=== PATIENT | male | born 1935 | race Caucasian/White ===

== ENCOUNTER 2019-08-23 17:24 | Outpatient (RCR) | payer MEDICARE, SELFPAY ==
[2019-06-09 15:17] LABS: INR 2.9; Prothrombin Time 30.1 Seconds (11.1-14.7)
[2019-07-07 15:42] LABS: INR 2.7; Prothrombin Time 28.1 Seconds (11.1-14.7)
[2019-08-09 15:51] LABS: INR 3.2; Prothrombin Time 32.5 Seconds (11.1-14.7)
[2019-08-23 17:52] LABS: INR 2.5; Prothrombin Time 26.7 Seconds (11.1-14.7)
== END 2019-09-07 23:59 | disposition home or self-care (01) ==
LOC: ANHLAB 17:24
PROVIDERS: PCP Internal Medicine Cardiovascular Disease; Visit Provider Internal Medicine Cardiovascular Disease
DX: Z51.81 Encounter for therapeutic drug level monitoring (principal); I48.91 Unspecified atrial fibrillation; Z79.01 Long term (current) use of anticoagulants
CPT/HCPCS: 36415; 85610

== ENCOUNTER 2020-02-06 01:54 | Outpatient (CLI) | payer MEDICARE, SELFPAY ==
[2020-02-06 19:09] LABS: SARS-CoV-2 RNA PCR Negative
== END 2020-02-06 01:55 | disposition home or self-care (01) ==
LOC: ANHCOVIDDT 01:55
PROVIDERS: PCP Internal Medicine Cardiovascular Disease; Visit Provider Internal Medicine Cardiovascular Disease
DX: Z01.812 Encounter for preprocedural laboratory examination (principal); Z11.59 Encounter for screening for other viral diseases
CPT/HCPCS: 87635; C9803; U0003

== ENCOUNTER 2020-02-08 05:30 | Day surgery (SDC) | payer MEDICARE, SELFPAY ==
[2020-02-08] VITALS (15 sets, daily range): BP systolic 106–148; BP diastolic 57–99; PULSE 55–79; RESP 12–22; TEMP 36.3–36.9; O2SAT 97–100; BMI 26.2
--- NOTE | ~2020-02-08 | XR_ITS ---
XR chest 2V DATE: 02/09/2020 07:49 INDICATION: 24 hours post pacemaker insertion TECHNIQUE: Portable AP chest on 02/09/2020 at 0747 hours COMPARISON: Portable AP chest on 02/08/2020 at 1243 hours FINDINGS: Left-sided pacemaker device with lead overlying right ventricle. Mild cardiomegaly. There i s aortic ectasia or aneurysm and tortuosity. No hilar or mediastinal enlargement. No pulmonary infiltrate or consolidation, pleural effusion or pu lmonary vascular congestion or pneumothorax. IMPRESSION: Mild cardiomegaly Thoracic aortic tortuosity and ectasia or aneurysm Left-sided single-lead pacemaker device Reviewed, dictated and finalized at location A.
--- NOTE | ~2020-02-08 | XR_ITS ---
XR chest 1V portable DATE: 02/08/2020 12:47 INDICATION: Pacemaker insertion TECHNIQUE: Portable AP chest on 02/08/2020 at 1243 hours COMPARISON: 08/07/2009 PA and lateral chest FINDINGS: Left-sided pacemaker device with lead overlying right ventricle. Heart size appears within normal range. There is aortic tortuosity and calcification. No pulmonary infiltrate or consolidation, pleural effusion or pulmonary vascular congestion or pneumo thorax. Diffuse osteopenia. IMPRESSION: No active pulmonary disease Left-sided pacemaker Aortic calcification and tortuosity Reviewed, dictated and finalized at location A.
--- NOTE | 2020-02-08 06:05 | ECG_ITS ---
Measurements Intervals [place] Rate: 69 P: NV: 0 QRS: -46 QRSD: 125 T: 90 QT: 439 QTc: 473 Interpretive Statements ATRIAL FIBRILLATION FREQUENT VENTRICULAR PREMATURE COMPLEXES LEFT AXIS DEVIATION INTRAVENTRICULAR CONDUCTION DELAY VOLTAGE CRITERIA FOR LVH BORDERLINE ST-T WAVE ABNORMALITY- HIGH LATERAL LEADS ABNORMAL ECG Electronically Signed On 02-08-2020 11:54:20 CDT by Bryon Bailey D.O.
[2020-02-08 09:31] LABS: Basophils Absolute Auto 0.1 K/mm3 (0.0-0.1); Basophils Percent Auto 1.3 % (0.2-1.2); Eosinophils Absolute Auto 0.1 K/mm3 (0-0.3); Eosinophils Percent Auto 3.2 % (0-4.4); Hemoglobin 13.4 g/dL (14.0-18.0); Immature Granulocyte Absolute 0.01 K/mm3 (0.00-0.031); Immature Granulocyte Percent A 0.3 % (0-0.5); Lymphocytes Absolute Auto 0.95 K/mm3 (0.9-3.2); Lymphocytes Percent Auto 25.3 % (18.3-44.2); Mean Corpuscular HGB Conc 34.4 g/dl (32-36); Mean Corpuscular Hemoglobin 33.2 pg (26-34); Mean Corpuscular Volume 96.5 fl (80-100); Mean Platelet Volume 10.4 fl (7.4-10.4); Monocytes Absolute Auto 0.6 K/mm3 (0.1-0.6); Monocytes Percent Auto 16.8 % (2.6-8.5); Neutrophils Percent Auto 53.1 % (45.5-73.1); Platelet Count Result 174 k/mm3 (150-375); Red Blood Count 4.04 M/mm3 (4.6-6.20); Red Cell Distribution Width 12.8 % (11.5-14.5); White Blood Count 3.8 K/mm3 (4.5-10.0)
[2020-02-08 09:33] LABS: INR 1.4; Prothrombin Time 17.1 Seconds (11.1-14.7)
[2020-02-08 09:35] LABS: Blood Urea Nitrogen 26 mg/dL (9-20); Carbon Dioxide 26 mmol/L (22-30); Chloride 107 mmol/L (98-107); Estimated Glomerular Filt Rate > 60; Glucose 91 mg/dL (75-110); Potassium 3.9 mmol/L (3.4-5.0); Sodium 139 mmol/L (137-145)
--- NOTE | 2020-02-08 09:36 | WPDHPUPDATE1 ---
History and Physical Update Update Date/Time: 02/08/20 09:36 Patient with persistent atrial fibrillation, moderate MR and AI, bradycardia and very frequent PVCs develop CHF recently. I think he has symptomatic bradycardia and recommended implantation of a permanent pacemaker. Last dose of warfarin was February 02. History and Physical has been reviewed, including an updated exam of the patient. There are NO changes in the patient's condition. Risks, benefits, and alternatives have been discussed and questions answered. Patient agrees to proceed with procedure. Reviewed risks of pacemaker implant with patient. These include breathing problems, allergic reactions, bleeding, infection, pneumothorax, cardiac puncture, need for unanticipated surgery, lead dislodgement among others.
--- NOTE | 2020-02-08 09:38 | WPDMODSED ---
Moderate Sedation Note-Pt Data Patient Data Diagnosis: Persistent atrial fibrillation with bradycardia, frequent PVCs, recent onset of CHF, moderate MR/AI, sleep apnea. Present Complaint: LEES, exertional fatigue, recent onset of CHF, persistent bradycardia, frequent PVCs 23% of cardiac cycles Reviewed risks of pacemaker implant with patient. These include breathing problems, allergic reactions, bleeding, infection, pneumothorax, cardiac puncture, need for unanticipated surgery, lead dislodgement among others. Procedure to be performed/Plan: Conscious sedation Venogram Implantation of a permanent single lead pacemaker Allergies Allergy/AdvReac Type Severity Reaction Status Date / Time erythromycin base Allergy Mild PT NOT Unverified 11/12/09 11:13 SURE--HAD PROBLEM 30 YEARS AGO Home Medications Medication Instructions Recorded Confirmed Type amlodipine 2.5 mg PO DAILY 02/07/20 02/07/20 History ascorbic acid (vitamin C) [Vitamin 500 mg PO DAILY 02/07/20 02/07/20 History C With Ashely Hips] furosemide [Lasix] 20 mg PO DAILY 02/07/20 02/07/20 History multivitamin 1 tablet PO DAILY 02/07/20 02/07/20 History fcgjc-1p-cfz-epa-fish oil [[place]-3 1 cap PO DAILY 02/07/20 02/07/20 History Fish Oil] vitamin D3-folic acid 1 tablet PO DAILY 02/07/20 02/07/20 History warfarin 6 mg PO DAILY 02/07/20 02/07/20 History Current Medications: Reviewed risks of pacemaker implant with patient. These include breathing problems, allergic reactions, bleeding, infection, pneumothorax, cardiac puncture, need for unanticipated surgery, lead dislodgement among others. Sedation/Anesthesia: No previous sedation/anesthesia problems (including family history). [facility] Past Medical History Medical History (Updated 02/08/20 @ 09:42 by Nel Bales MD) Aortic insufficiency Atrial fibrillation Diastolic CHF, chronic 2020 Mitral regurgitation LAI treated with BiPAP PVCs (premature ventricular contractions) Surgical History Surgical History (Updated 02/08/20 @ 09:43 by Nel Bales MD) H/O detached retina repair H/O hernia repair S/P lens implant Family History Family History (Updated 02/08/20 @ 09:43 by Nel Bales MD) Father Cerebrovascular accident Mother Polycystic kidney disease Mod Sed Physical Exam Physical Exam Pre Procedural Exam: Normal: Appearance, Eyes, Ears, Nose, Neck, Throat, Airway, Lungs, Heart Size, Heart Rate, Neuro Exam, Abdomen, Liver, Kidneys, Extremities and Skin (Skin in the left prepectoral area is intact) and Variation: Heart Rhythm (Irregular rhythm secondary to PVCs) Hours since solid foods: 12 Hours since liquid intake: 12 Internal Medicine - PN: Obj Da Labs CBC & Chem 7: 02/08/20 09:15 02/08/20 09:15 Labs: Laboratory Results - last 24 hr 02/08/20 02/08/20 02/08/20 09:15 09:15 09:15 WBC 3.8 L RBC 4.04 L Hgb 13.4 L Hct 39.0 L MCV 96.5 MCH 33.2 MCHC 34.4 RDW 12.8 Plt Count 174 MPV 10.4 Immature Gran % (Auto) 0.3 Neut % (Auto) 53.1 Lymph % (Auto) 25.3 [place] % (Auto) 16.8 H Eos % (Auto) 3.2 Baso % (Auto) 1.3 H Lymph # (Auto) 0.95 [place] # (Auto) 0.6 Eos # (Auto) 0.1 Baso # (Auto) 0.1 Abs Immat Gran (auto) 0.01 Absolute Neuts (auto) 2.0 Absolute Nucleated RBC 0.0 Nucleated RBC % 0.0 PT 17.1 H INR 1.4 Sodium 139 Potassium 3.9 Chloride 107 Carbon Dioxide 26 BUN 26 H Creatinine 1.00 Estim Creat Clear Calc Not Reportable Estimated GFR > 60 Glucose 91 Calcium 9.0 ASA Classification/Sedation ASA Classification/Sedation ASA Class: III Risks: Risks, benefits and alternatives explained and patient/family accepted plan for sedation. Reviewed risks of pacemaker implant with patient. These include breathing problems, allergic reactions, bleeding, infection, pneumothorax, cardiac puncture, need for unantic
--- NOTE | 2020-02-08 12:12 | ECG_ITS ---
Measurements Intervals [place] Rate: 66 P: NE: 0 QRS: -20 QRSD: 155 T: 117 QT: 460 QTc: 483 Interpretive Statements ELECTRONIC VENTRICULAR PACEMAKER VENTRICULAR PREMATURE COMPLEX BASELINE ARTIFACT- I, II, III, AVR, AVL, AVF, V1 NO FURTHER INTERPRETATION IS POSSIBLE ATYPICAL ECG Electronically Signed On 02-08-2020 13:06:29 CDT by Bryon Bailey D.O.
--- NOTE | 2020-02-08 12:15 | PM.OP ---
Procedure Note - Brief Procedure Note - Brief Date of procedure: 02/08/20 Pre-op diagnosis: Symptomatic Bradycardia Symptomatic bradycardia Post-op diagnosis: same Procedure performed: conscious sedation Venogram Insertion of a permanent single lead pacemaker Description of procedure: uneventful implantation of a [employer]ax single lead VVI pacemaker Lead placed on septum Implants: a[employer] Dax's VVI pacemaker Pulse generator model Assurity MRI 1272, Serial # [id number] V lead: [employer] 2088TC/52 cm, Serial # [id number] Anesthesia: local (w conscious sedation) Surgeon: Nel Bales MD Estimated blood loss (mL): 10 Drains: No Packing: No Pathology: none sent Complications: No immediate complications Condition: stable Disposition: observation
--- NOTE | 2020-02-08 12:18 | PM.PROC ---
Procedure Note - Detailed Date of procedure: 02/08/20 Pre-op diagnosis: Symptomatic Bradycardia Post-op diagnosis: same Procedure performed: Conscious sedation Venogram Implantation of a permanent single lead pacemaker Description of procedure: SITE: Left prepectoral area MEDICATIONS GIVEN IN HEATING EQUIPMENT INSTALLER: Ancef 1 gram IV piggyback CONSCIOUS SEDATION: Assessment: The patient has no history of anesthesia problems. The patient's oropharynx is clear. The patient was deemed to be a good candidate for conscious sedation. The patient had continuous hemodynamic monitoring during the procedure. Start time: 1105 Completion time: 1208 Total conscious sedation time: 63 minutes Medications: Versed 2 mg, fentanyl 100 mcg IV push Trained observer: Atiya Pacheco RN Outcome: The patient tolerated the procedure well with no complications. PROCEDURE: After informed consent , the patient was brought to the [facility] and the left prepectoral area was prepped and draped in usual fashion . The patient received preop antibiotic and conscious sedation . The left prepectoral area was anesthetized with lidocaine. A venogram was performed showing the course of the left subclavian vein which was patent. Next a skin incision was made and carried down to the prepectoral fascia. The pacer pocket was formed. Hemostasis was obtained using electrocautery . The left subclavian vein was accessed with the micropuncture technique, and a J-tip guide wire was passed into the superior vena cava under fluoroscopic guidance . The needle was withdrawn. A 6 [place] safety sheath was passed over the wire, the wire withdrawn, and the right ventricular lead was passed into the inferior vena cava under fluoroscopic guidance . The lead was then prolapsed through the tricuspid valve and advanced into the right ventricule And the lead was implanted on the septum. When suitable sensing and pacing thresholds were obtained, it was screwed into place. No extra cardiac stimulation was obtained using 10 volts. The sheath was withdrawn. The lead was securedto the prepectoral fascia using 2-0 silk over it's sleeve. The pocket was cleansed with antibiotic containing solution . The pulse generator was introduced into the operative field, and the lead was secured into the generator . A gentle tug showed the lead was securely fastened. The device was introduced into the pocket. The subcutaneous tissues were closed in a double layer fashion with interrupted sutures, using 2-0 Vicryl suture , and the skin was closed in a continuous fashion using 4-0 Vicryl suture in a continuous fashion. The area was cleansed, and an Aquacel dressing was applied . The patient tolerated the procedure well with no complications. PACEMAKER INFORMATION: Pulse generator: [employer] D[employer]'s medical model Assurity MRI 1272, Serial # [id number] Right ventricular lead: V lead: [employer] 2088TC/52 cm, Serial # [id number] MEASURED DATA: Right ventricular lead: R-wave sensing 9.6 mV, impedance 630 Ohms, threshold 0.75 volts at 0.4 millisecond PROGRAMMING; VVIR 60 Implants: Pulse generator: [employer] Dax's medical model Assurity MRI 1272, Serial # [id number] Right ventricular lead: V lead: [employer] 2088TC/52 cm, Serial # [id number] Anesthesia: local ( with conscious sedation) Surgeon: Nel Bales MD Estimated blood loss (mL): 10 Drains: No Packing: No Pathology: none sent Complications: No immediate complications Condition: stable Disposition: observation
--- NOTE | 2020-02-08 12:32 | ECG_ITS ---
Measurements Intervals [place] Rate: 66 P: DC: 0 QRS: -20 QRSD: 155 T: 117 QT: 460 QTc: 483 Interpretive Statements ELECTRONIC VENTRICULAR PACEMAKER VENTRICULAR PREMATURE COMPLEX AND FUSION COMPLEX BASELINE ARTIFACT- I, III, AVR, AVL,A VF, V1-V2 NO FURTHER INTERPRETATION IS POSSIBLE ATYPICAL ECG Electronically Signed On 02-08-2020 16:13:01 CDT by Bryon Bailey D.O.
[2020-02-08] MEDS: traMADol HCL 50 MG TABLET PO (19:51)
[2020-02-09] VITALS (13 sets, daily range): BP systolic 142–160; BP diastolic 71–102; PULSE 67–90; RESP 14–18; TEMP 36.6; O2SAT 98–99
--- NOTE | 2020-02-09 | ECHOL_ITS ---
Patient Info Name: Simón Negron Age: 84 years : 1935 Gender: Male Ht: 66 in Wt: 162 lbs BSA: 1.86 m2 HR: 80 bpm Heart Rhythm: Paced Technical Quality: Good Exam Date: 02/09/2020 11:08 AM Exam Location: [facility] Patient Status: Outpatient Admit Date: 02/08/2020 Staff Ordering Physician: Pippa Foss APRN [employer] Resources Hr Generalist: Logan Meeks RDCS Attending Provider: Nel Bales MD Referring Physician: Pipo MARIEE; Exam Type: CA echo limited Study Info Limited two-dimensional transthoracic echocardiogram is performed. History/Risk Factors Recent pacemaker placement; symptomatic bradycardia. Summary 1. Left ventricular systolic function is normal, estimated at 55-60%. 2. Right ventricular chamber dimension is normal. 3. Linear artifact in right ventricle suggestive of catheter(s), pacemaker lead(s), or ICD lead(s). 4. Pacemaker lead is positioned in the septal position. 5. There is no pericardial effusion. 6. There is mild aortic valve sclerosis. Left Ventricle Left ventricular chamber dimension is normal. Left ventricular systolic function is normal, estimated at 55-60%. Right Ventricle Right ventricular chamber dimension is normal. Linear artifact in right ventricle suggestive of catheter(s), pacemaker lead(s), or ICD lead(s). Pacemaker lead is positioned in the septal position. Left Atria Left atrial chamber dimension is mildly enlarged. Right Atria Right atrial chamber dimension is normal. Aortic Valve The aortic valve is trileaflet. There is mild aortic valve sclerosis. There is mild aortic valve regurgitation. Pulmonic Valve The pulmonic valve is not well visualized. Mitral Valve The mitral valve has normal leaflets. There is mild mitral valve regurgitation. Tricuspid Valve The tricuspid valve leaflets are normal. There is trace tricuspid valve regurgitation. Pericardium/Pleural The pericardium appears normal. There is no pericardial effusion. Aorta The aortic root size at the sinus of Valsalva is normal. Left Ventricular Outflow Tract Name Value Normal LVOT Doppler LVOT Peak Gradient 3 mmHg LVOT Mean Gradient 2 mmHg LVOT VTI 15 cm LVOT VTI/AV VTI Ratio 0.7 Tricuspid Valve Name Value Normal TV Regurgitation Doppler TR Peak Velocity 266 cm/s TR Peak Gradient 28 mmHg Estimated PAP/RSVP RA Pressure 5 mmHg <=5 PA Systolic Pressure 33 mmHg <36 RV Systolic Pressure 33 mmHg <36 Aortic Valve Name Value Normal
[2020-02-09] MEDS: traMADol HCL 50 MG TABLET 100 MG PO (02:25)
[2020-02-09 08:28] LABS: Glucose Point of Care 121 (65-105)
[2020-02-09] MEDS: METOPROLOL SUCCINATE EXT REL 25 MG TABCR PO (10:00)
[2020-02-09] MEDS: FUROSEMIDE 20 MG TABLET PO (13:13)
[2020-02-09] MEDS: MECLIZINE HCL 12.5 MG TABLET PO (13:32)
--- NOTE | 2020-02-09 15:09 | PM.DS ---
DS: Admitting Diagnosis Admitting Diagnosis Admitting Diagnosis: Symptomatic bradycardia DS: Discharge Diagnosis Discharge Diagnosis (1) Symptomatic bradycardia: Code(s): R00.1 - Bradycardia, unspecified Status: Acute Assessment and Plan: Persistent atrial fibrillation with symptomatic bradycardia. Single-chamber Dominguez (St Dax) pacemaker placed by Dr Bales on 02/08/2020 . (2) Atrial fibrillation: Code(s): I48.91 - Unspecified atrial fibrillation Status: Acute Assessment and Plan: He is to resume his warfarin on 02/11/2020 (3) PVCs (premature ventricular contractions): Code(s): I49.3 - Ventricular premature depolarization Status: Acute Assessment and Plan: Metoprolol succinate added to his regimen to try to suppress some of the PVCs . DS: Summary Hospital Course Reason for hospitalization: Symptomatic bradycardia Hospital Course: 84-year-old male with persistent atrial fibrillation, moderate MR and AI, bradycardia with very frequent PVCs with the development of recent heart failure. Permanent pacemaker was recommended due to his symptomatic bradycardia. Dominguez (St Dax) single-chamber pacemaker placed by Dr Bales on 02/08/2020. Chest x-ray following the implant revealed no pneumothorax. He was monitored overnight. He continued to have frequent PVCs. Pacemaker rate was increased to 80 beats per minute. There was a decrease in the frequency of the PVCs however he still continued to have some bigeminy as well as trigeminy. He was asymptomatic during those times. Chest x-ray PA and lateral on the day of discharge revealed no pneumothorax. The pacemaker interrogation revealed normally functioning device. He was started on Metoprolol succinate 25 mg to attempt to suppress some of the PVCs. As his blood pressure would tolerate higher dose he was discharged on 50 mg daily. He complained of significant lightheadedness as well of feeling flushed with some nausea. He was given some Zofran with some relief. Reasons for dizziness were explored including orthostatic blood pressures, limited echo which was normal And pacemaker performance which was also normal.. Meclizine 12.5 mg was given for the complaints of dizziness. This certainly did help his lightheadedness. He felt he was stable enough to go home and get a good 8 hours sleep in his own bed. He was discharged home in stable condition. Status at Discharge Functional status at discharge: independent ambulation Overall status at discharge: patient is progressing back to baseline Time Spent with Patient Time attestation: Total time spent providing and/or coordinating discharge services: 45 minutes. 20 minutes in the room with discharge instructions including restrictions for activity, resuming medications and exploring reasons for his dizziness. 15 minutes to do discharge orders and 10 minutes to do discharge summary. Time spent: Greater than 30 minutes Exam Narrative: Exam Narrative: In chair. Complaining of some lightheadedness. Denied chest discomfort or shortness of breath. Const: General: cooperative Nutritional Appearance: well nourished Orientation/consciousness: patient oriented x3 HENMT: Head: normal to inspection, normocephalic and atraumatic Ears: hearing grossly normal bilaterally General nose exam: Normal external nose present Eyes: General: appearance normal, both eyes and all related structures Neck: Neck: normal visual inspection and full ROM Chest: Chest palpation & inspection: normal inspection of the chest and Pacemaker present Other: Aquacel dressing intact. No drainage. No swelling or bleeding. Small amount of ecchymosis at the base of the dressing. Resp: Effort & Inspection: normal respiratory effort and able to speak in complete senten
--- NOTE | 2020-02-09 16:45 | PC.NURSE ---
1530-pt given D/C orders and instructions. Questions answered and verbalized understanding. AOx4. Incision site covered with Aquacel Ag, no evidence of bleeding or hematoma noted. Taken via wheelchair to waiting vehicle. No distress noted or verbalized at time of departure.
== END 2020-02-09 15:30 | disposition home or self-care (01) ==
LOC: ANHCATHLAB 08:37 → ANHIMU 02-09 00:21 → ANHCPC 03-12 09:14
PROVIDERS: PCP Internal Medicine; Visit Provider Internal Medicine Cardiovascular Disease
PROC: 0JH604Z Insertion of Pacemaker, Single Chamber into Chest Subcutaneous Tissue and Fascia, Open Approach (ICD-10-PCS; CPT 33210; principal; 2020-02-08 10:00)
DX: I49.3 Ventricular premature depolarization (principal); I48.19 Other persistent atrial fibrillation; I50.32 Chronic diastolic (congestive) heart failure; I34.0 Nonrheumatic mitral (valve) insufficiency; I35.1 Nonrheumatic aortic (valve) insufficiency; G47.33 Obstructive sleep apnea (adult) (pediatric); Z79.01 Long term (current) use of anticoagulants
CPT/HCPCS: 33207; 36415; 71045; 71046; 80048; 85025; 85610; 93005; 93308; A9270; C1786; C1898; J0690; J1644; J2250; J2405; J3010; J7030; J7040

== ENCOUNTER 2020-02-28 11:03 | Outpatient (RCR) | payer MEDICARE, SELFPAY ==
[2019-12-07 15:33] LABS: INR 2.7; Prothrombin Time 28.3 Seconds (11.1-14.7)
[2020-01-16 11:48] LABS: Basophils Absolute Auto 0.1 K/mm3 (0.0-0.1); Basophils Percent Auto 1.3 % (0.2-1.2); Eosinophils Absolute Auto 0.1 K/mm3 (0-0.3); Eosinophils Percent Auto 2.5 % (0-4.4); Hematocrit 40.3 % (42.0-52.0); Hemoglobin 13.8 g/dL (14.0-18.0); Immature Granulocyte Absolute 0.01 K/mm3 (0.00-0.031); Immature Granulocyte Percent A 0.3 % (0-0.5); Lymphocytes Absolute Auto 0.87 K/mm3 (0.9-3.2); Lymphocytes Percent Auto 21.8 % (18.3-44.2); Mean Corpuscular HGB Conc 34.2 g/dl (32-36); Mean Corpuscular Hemoglobin 33.3 pg (26-34); Mean Corpuscular Volume 97.3 fl (80-100); Mean Platelet Volume 11.4 fl (7.4-10.4); Monocytes Absolute Auto 0.7 K/mm3 (0.1-0.6); Monocytes Percent Auto 16.8 % (2.6-8.5); Neutrophils Absolute Auto 2.3 K/mm3 (1.3-6.7); Neutrophils Percent Auto 57.3 % (45.5-73.1); Platelet Count Result 172 k/mm3 (150-375); Red Blood Count 4.14 M/mm3 (4.6-6.20); Red Cell Distribution Width 13.4 % (11.5-14.5)
[2020-01-16 11:49] LABS: Blood Urea Nitrogen 19 mg/dL (9-20); Calcium 9.3 mg/dL (8.4-10.2); Carbon Dioxide 28 mmol/L (22-30); Chloride 105 mmol/L (98-107); Estimated Glomerular Filt Rate > 60; Glucose 103 mg/dL (75-110); Potassium 4.3 mmol/L (3.4-5.0); Sodium 137 mmol/L (137-145)
[2020-01-16 11:57] LABS: NT Pro B Type Natriuretic Pept 978 PG/ML (5-100)
[2020-01-16 12:32] LABS: INR 3.2; Prothrombin Time 32.2 Seconds (11.1-14.7)
[2020-02-28 11:31] LABS: Prothrombin Time 21.8 Seconds (11.1-14.7)
== END 2020-03-06 23:59 | disposition home or self-care (01) ==
LOC: ANHLAB 11:03
PROVIDERS: PCP Internal Medicine Cardiovascular Disease; Visit Provider Internal Medicine Cardiovascular Disease
DX: I48.92 Unspecified atrial flutter (principal); I48.19 Other persistent atrial fibrillation; R00.1 Bradycardia, unspecified; R06.00 Dyspnea, unspecified; R53.83 Other fatigue; Z79.01 Long term (current) use of anticoagulants; Z79.899 Other long term (current) drug therapy
CPT/HCPCS: 36415; 80048; 83735; 83880; 85025; 85610

== ENCOUNTER 2020-04-29 01:22 | Outpatient (CLI) | payer MEDICARE, SELFPAY ==
[2020-04-29 18:11] LABS: SARS-CoV-2 RNA PCR Negative
== END 2020-04-29 01:23 | disposition home or self-care (01) ==
LOC: ANHCOVIDDT 01:24
PROVIDERS: PCP Internal Medicine; Visit Provider Internal Medicine Cardiovascular Disease
DX: Z01.812 Encounter for preprocedural laboratory examination (principal); Z20.828 Contact with and (suspected) exposure to other viral communicable diseases
CPT/HCPCS: 87635; C9803; U0003

== ENCOUNTER 2020-05-01 03:09 | Day surgery (SDC) | payer MEDICARE, SELFPAY ==
[2020-04-30 13:03] VITALS: BMI 26.2
[2020-05-01] VITALS (10 sets, daily range): BP systolic 125–138; BP diastolic 83–101; PULSE 80; RESP 10–22; TEMP 36.4–36.5; O2SAT 96–100; BMI 26.0
--- NOTE | 2020-05-01 10:33 | WPDHPUPDATE1 ---
History and Physical Update Update Date/Time: 05/01/20 10:33 Patient with significant LEES and exertional intolerance here to evaluate the degree of his mitral regurgitation By ELIZABET.History and Physical has been reviewed, including an updated exam of the patient. There are NO changes in the patient's condition. Risks, benefits, and alternatives have been discussed and questions answered. Patient agrees to proceed with procedure.
--- NOTE | 2020-05-01 10:34 | WPDMODSED ---
Moderate Sedation Note-Pt Data Patient Data Diagnosis: LEES exertional intolerance. Echo showed EF 59%, mitral valve prolapse with moderate MR and moderate AI in July 2019. Murmur sounds quite prominent. Also has a history of persistent atrial fibrillation, anticoagulation, pacemaker, and frequent PVCs abolished with flecainide. History of sleep apnea using BiPAP. Present Complaint: LEES, exertional intolerance, mitral regurgitation Procedure to be performed/Plan: conscious sedation transesophageal echo Allergies Allergy/AdvReac Type Severity Reaction Status Date / Time erythromycin base Allergy Mild PT NOT Verified 05/01/20 09:27 SURE--HAD PROBLEM 30 YEARS AGO Home Medications Medication Instructions Recorded Confirmed Type [place]-3 Fish Oil 1 cap PO DAILY 02/07/20 04/30/20 History ascorbic acid (vitamin C) [Vitamin 500 mg PO DAILY 02/07/20 04/30/20 History C With Ashely Hips] furosemide [Lasix] 20 mg PO DAILY 02/07/20 04/30/20 History multivitamin 1 tablet PO DAILY 02/07/20 04/30/20 History vitamin D3-folic acid 1 tablet PO DAILY 02/07/20 04/30/20 History warfarin 6 mg PO DAILY 02/07/20 04/30/20 History metoprolol succinate 50 mg PO DAILY #30 tablet 02/09/20 04/30/20 Rx Current Medications: Active Medications Sodium Chloride (Normal Saline Iv) 1,000 mls @ 30 mls/hr IV CONT .Q24H TO Sedation/Anesthesia: No previous sedation/anesthesia problems (including family history). [facility] Past Medical History Medical History (Updated 05/01/20 @ 10:36 by Nel Bales MD) Aortic insufficiency Atrial fibrillation Diastolic CHF, chronic 2019 Mitral regurgitation LAI treated with BiPAP Pacemaker Saint Dax's pacemaker, January 2020 PVCs (premature ventricular contractions) Surgical History Surgical History H/O detached retina repair H/O hernia repair S/P lens implant Family History Family History Father Cerebrovascular accident Mother Polycystic kidney disease Social History Social History Smoking status: Never smoker Alcohol intake: never Substance use: never Substance use type: does not use Gender identity (if verbalized by the patient): Male Spiritual care concerns: No Mod Sed Physical Exam Physical Exam Pre Procedural Exam: Normal: Appearance, Eyes, Ears, Nose, Neck, Throat, Airway, Lungs, Heart Size ( 3/6 blowing systolic murmur at the apex), Heart Rate, Heart Rhythm, Neuro Exam, Abdomen, Liver, Kidneys, Extremities and Skin and Variation: Heart Size ( 3/6 blowing systolic murmur at the apex) Hours since solid foods: 12 Hours since liquid intake: 12 Internal Medicine - PN: Obj Da Vital Signs Vital Signs: Vital Signs - 24 hr 05/01/20 09:15 Temperature 97.5 F L Pulse Rate 80 Respiratory Rate 13 Blood Pressure 138/100 H Pulse Oximetry 100 Meds/Results Medications: Active Medications Generic Name Dose Route Start Last Admin Trade Name Freq PRN Reason Stop Dose Admin Sodium Chloride 1,000 mls @ 30 mls/hr 05/01/20 06:00 Normal Saline Iv IV CONT .Q24H [facility] ASA Classification/Sedation ASA Classification/Sedation ASA Class: III Risks: Risks, benefits and alternatives explained and patient/family accepted plan for sedation. risks of sedation ELIZABET were reviewed including breathing problems, blood pressure problems, Esophageal problems etc.. No history of any esophageal stricture or swallowing troubles. Patient desires to proceed.. Patient re-evaluated immediately prior to sedation.
--- NOTE | 2020-05-01 11:01 | PM.OP ---
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
--- NOTE | 2020-05-01 11:05 | PM.PROC ---
Procedure Note - Detailed Date of procedure: 05/01/20 Pre-op diagnosis: Dyspenia on Exertion, Mitral/Tricuspid Valve Regur Post-op diagnosis: same Procedure performed: Conscious sedation Transesophageal echo Description of procedure: Conscious sedation: Assessment: The patient has no history of anesthesia problems. The patient's oropharynx is clear. The patient was deemed to be a good candidate for conscious sedation. The patient had continuous hemodynamic and oximetric monitoring during the procedure. Start time: 1041 Completion time: 1059 Total conscious sedation time: 18 minutes Medications Used: Versed 1 mg, fentanyl 75 mcg IV push Trained observer: Haja Vega RN Outcome: The patient tolerated the procedure well with no complications. Procedure: After informed consent the patient had Hurricaine spray the hypopharynx. The patient had conscious sedation as described above. The transesophageal echo probe was introduced in the esophagus without difficulty. Imaging was obtained in multiplane views. Agitated saline was injected to evaluate for intracardiac shunting. The patient tolerated the procedure well with no complications. Findings: The left atrium was was very dilated. There is no thrombus present in the left atrium or left atrial appendage. The atrial septum appeared intact. Mitral valve showed significant prolapse of the A2 cusp of the anterior leaflet. There was a mobile mass associated with the A2 leaflets which appears to be a ruptured leaflet tip and torn cordae, vegetation much less likely. The left ventricle was enlarged, with moderate to severe global hypokinesis and akinesis of the mid and distal inferoseptal segment. The ejection fraction is estimated to be: 25%. The aortic root and valve were normal. The ascending aorta, aortic arch and descending thoracic aorta had intimal wall thickening but no significant atherosclerosis. The right atrium, tricuspid valve, right ventricle, pulmonic valve and pulmonic artery were all normal. There is no pericardial effusion. When agitated saline was injected intravenously there was no evidence of intracardiac shunting. Colorflow Doppler Findings: There was at least moderate highly eccentric anteriorly directed mitral regurgitation present. Mild aortic insufficiency and trace to mild tricuspid regurgitation were seen. Doppler of the left pulmonary vein was normal. Doppler of the right pulmonary vein showed mild blunting of systolic flow but no flow reversal. Anesthesia: local ( With conscious sedation) Surgeon: Nel Bales MD Estimated blood loss (mL): 0 Drains: No Packing: No Pathology: none sent Complications: No immediate complications Condition: stable Disposition: observation Findings: Significant anterior mitral valve prolapse Ruptured A2 leaflet tip with torn chordae of the mitral valve, vegetation much less likely. At least moderate highly eccentric anteriorly directed mitral regurgitation. Mild aortic insufficiency Trace to mild tricuspid regurgitation Severe left ventricular dysfunction, EF 25% Recommendation: DC flecainide since it is contraindicated with this degree of left ventricular function Evaluate for SBE: blood cultures, CBC, sed rate, CRP Treat systolic dysfunction; add lisinopril 5 mg qd. Ischemia evaluation Consider referral to [facility] for Casandra-Clip procedure
[2020-05-01 12:09] LABS: Basophils Percent Auto 0.8 % (0.2-1.2); Eosinophils Absolute Auto 0.7 K/mm3 (0-0.3); Eosinophils Percent Auto 14.6 % (0-4.4); Hematocrit 39.3 % (42.0-52.0); Hemoglobin 13.7 g/dL (14.0-18.0); Immature Granulocyte Absolute 0.01 K/mm3 (0.00-0.031); Immature Granulocyte Percent A 0.2 % (0-0.5); Mean Corpuscular HGB Conc 34.9 g/dl (32-36); Mean Corpuscular Hemoglobin 33.3 pg (26-34); Mean Corpuscular Volume 95.4 fl (80-100); Mean Platelet Volume 10.5 fl (7.4-10.4); Monocytes Absolute Auto 0.6 K/mm3 (0.1-0.6); Monocytes Percent Auto 13.2 % (2.6-8.5); Neutrophils Absolute Auto 2.3 K/mm3 (1.3-6.7); Neutrophils Percent Auto 48.2 % (45.5-73.1); Platelet Count Result 166 k/mm3 (150-375); Red Blood Count 4.12 M/mm3 (4.6-6.20); Red Cell Distribution Width 13.2 % (11.5-14.5); White Blood Count 4.8 K/mm3 (4.5-10.0)
[2020-05-01 12:20] LABS: Alanine Aminotransferase 28 U/L (4-50); Albumin Level 3.7 g/dL (3.5-5.1); Alkaline Phosphatase 81 U/L (38-126); Anion Gap 7 mmol/L (8-16); Aspartate Amino Transferase 44 U/L (17-59); Bilirubin,Total 0.8 mg/dL (0.2-1.3); Blood Urea Nitrogen 15 mg/dL (9-20); Calcium 8.7 mg/dL (8.4-10.2); Carbon Dioxide 27 mmol/L (22-30); Chloride 109 mmol/L (98-107); Estimated CRCL calculation 48 ml/min; Estimated Glomerular Filt Rate > 60; Glucose 89 mg/dL (75-110); Potassium 4.5 mmol/L (3.4-5.0); Sodium 143 mmol/L (137-145)
[2020-05-01 12:23] LABS: CRP 0.9 mg/dL (<1.0)
[2020-05-01 12:38] LABS: Erythrocyte Sedimentation Rate 13 mm/hr (0-20)
--- NOTE | 2020-05-01 13:33 | SUR.PHASEII ---
1240-pt given D/C orders and instructions. Questions answered and verbalized understanding. AOx4. Taken via wheelchair to waiting vehicle. No distress noted or verbalized at time of departure.
== END 2020-05-01 12:40 | disposition home or self-care (01) ==
PROVIDERS: PCP Internal Medicine; Visit Provider Internal Medicine Cardiovascular Disease
PROC: (CPT 93312; principal; 2020-05-01 10:00)
DX: I34.0 Nonrheumatic mitral (valve) insufficiency (principal); I34.8 Other nonrheumatic mitral valve disorders; I36.1 Nonrheumatic tricuspid (valve) insufficiency; I35.1 Nonrheumatic aortic (valve) insufficiency; I34.1 Nonrheumatic mitral (valve) prolapse; R06.09 Other forms of dyspnea; I48.19 Other persistent atrial fibrillation; I49.3 Ventricular premature depolarization; G47.33 Obstructive sleep apnea (adult) (pediatric); I50.32 Chronic diastolic (congestive) heart failure; Z79.01 Long term (current) use of anticoagulants; Z95.0 Presence of cardiac pacemaker
CPT/HCPCS: 36415; 80053; 85025; 85610; 85652; 86140; 87040; 93312; 93320; 93325; A9270; J2250; J3010; J7040

== ENCOUNTER 2020-05-22 01:19 | Outpatient (CLI) | payer MEDICARE, SELFPAY ==
[2020-05-22 18:17] LABS: SARS-CoV-2 RNA PCR Negative
== END 2020-05-22 01:20 | disposition home or self-care (01) ==
LOC: ANHCOVIDDT 01:20
PROVIDERS: PCP Internal Medicine; Visit Provider Specialist
DX: Z01.812 Encounter for preprocedural laboratory examination (principal); Z20.828 Contact with and (suspected) exposure to other viral communicable diseases
CPT/HCPCS: 87635; C9803; U0003

== ENCOUNTER 2020-05-24 00:38 | Day surgery (SDC) | payer MEDICARE, SELFPAY ==
[2020-05-23 15:38] VITALS: BMI 26.1
[2020-05-24] VITALS (16 sets, daily range): BP systolic 115–155; BP diastolic 71–98; PULSE 59–76; RESP 11–23; TEMP 36.4; O2SAT 98–100
[2020-05-24 07:33] LABS: Basophils Absolute Auto 0.1 K/mm3 (0.0-0.1); Eosinophils Absolute Auto 0.3 K/mm3 (0-0.3); Eosinophils Percent Auto 4.8 % (0-4.4); Hematocrit 38.7 % (42.0-52.0); Hemoglobin 13.5 g/dL (14.0-18.0); Immature Granulocyte Absolute 0.02 K/mm3 (0.00-0.031); Immature Granulocyte Percent A 0.4 % (0-0.5); Lymphocytes Absolute Auto 1.24 K/mm3 (0.9-3.2); Lymphocytes Percent Auto 23.9 % (18.3-44.2); Mean Corpuscular HGB Conc 34.9 g/dl (32-36); Mean Corpuscular Hemoglobin 33.2 pg (26-34); Mean Corpuscular Volume 95.1 fl (80-100); Mean Platelet Volume 10.5 fl (7.4-10.4); Monocytes Absolute Auto 0.7 K/mm3 (0.1-0.6); Monocytes Percent Auto 13.7 % (2.6-8.5); Neutrophils Absolute Auto 2.9 K/mm3 (1.3-6.7); Neutrophils Percent Auto 56.2 % (45.5-73.1); Platelet Count Result 189 k/mm3 (150-375); Red Blood Count 4.07 M/mm3 (4.6-6.20); Red Cell Distribution Width 13.5 % (11.5-14.5); White Blood Count 5.2 K/mm3 (4.5-10.0)
[2020-05-24 07:41] LABS: INR 1.4; Prothrombin Time 16.5 Seconds (11.1-14.7)
[2020-05-24 07:46] LABS: Anion Gap 8 mmol/L (8-16); Blood Urea Nitrogen 22 mg/dL (9-20); Calcium 8.8 mg/dL (8.4-10.2); Carbon Dioxide 25 mmol/L (22-30); Chloride 108 mmol/L (98-107); Estimated CRCL calculation 40 ml/min; Estimated Glomerular Filt Rate > 60; Glucose 94 mg/dL (75-110); Potassium 4.2 mmol/L (3.4-5.0); Sodium 141 mmol/L (137-145)
--- NOTE | 2020-05-24 09:42 | WPDMODSED ---
Moderate Sedation Note-Pt Data Patient Data Diagnosis: Mitral and aortic valve regurgitation persistent atrial fibrillation recent ventricular pacemaker implant exertional dyspnea Present Complaint: exertional shortness of breath /fatigue Procedure to be performed/Plan: right and left heart catheterization Allergies Allergy/AdvReac Type Severity Reaction Status Date / Time erythromycin base Allergy Mild PT NOT Verified 05/23/20 15:31 SURE--HAD PROBLEM 30 YEARS AGO Home Medications Medication Instructions Recorded Confirmed Type [place]-3 Fish Oil 1 cap PO DAILY 02/07/20 05/23/20 History ascorbic acid (vitamin C) [Vitamin 500 mg PO DAILY 02/07/20 05/23/20 History C With Ashely Hips] furosemide [Lasix] 20 mg PO DAILY 02/07/20 05/23/20 History multivitamin 1 tablet PO DAILY 02/07/20 05/23/20 History vitamin D3-folic acid 1 tablet PO DAILY 02/07/20 05/23/20 History warfarin 3 mg PO DAILY 02/07/20 05/23/20 History amiodarone 200 mg PO BID 05/23/20 05/23/20 History metoprolol succinate 25 mg PO DAILY 05/23/20 05/23/20 History Current Medications: Active Medications Sodium Chloride (Normal Saline Iv) 500 mls @ 100 mls/hr IV CONT .Q5H TO Sedation/Anesthesia: No previous sedation/anesthesia problems (including family history). [facility] Past Medical History Medical History (Updated 05/08/20 @ 09:14 by Vinicius Sapp MD) Aortic insufficiency Atrial fibrillation Diastolic CHF, chronic 2019 Mitral regurgitation LAI treated with BiPAP Pacemaker [employer] pacemaker, January 2020 PVCs (premature ventricular contractions) Surgical History Surgical History H/O detached retina repair H/O hernia repair S/P lens implant Family History Family History Father Cerebrovascular accident Mother Polycystic kidney disease Social History Social History Smoking status: Never smoker Alcohol intake: never Substance use: never Substance use type: does not use Gender identity (if verbalized by the patient): Male Spiritual care concerns: No Mod Sed Physical Exam Physical Exam Pre Procedural Exam: Normal: Appearance, Neck, Throat, Airway, Lungs, Neuro Exam, Abdomen and Extremities and Variation: Heart Size ( PMI enlarged not significantly displaced), Heart Rate ( irregularly irregular) and Heart Rhythm Hours since solid foods: 12 Hours since liquid intake: 12 Internal Medicine - PN: Obj Da Vital Signs Vital Signs: Vital Signs - 24 hr 05/24/20 07:27 Temperature 36.4 C Pulse Rate 76 Respiratory Rate 23 H Blood Pressure 155/81 H Pulse Oximetry 100 Meds/Results Medications: Active Medications Generic Name Dose Route Start Last Admin Trade Name Freq PRN Reason Stop Dose Admin Sodium Chloride 500 mls @ 100 mls/hr 05/24/20 05:55 Normal Saline Iv IV CONT .Q5H TO Labs CBC & Chem 7: 05/24/20 07:27 05/24/20 07:27 Labs: Laboratory Results - last 24 hr 05/24/20 05/24/20 05/24/20 07:27 07:27 07:27 WBC 5.2 RBC 4.07 L Hgb 13.5 L Hct 38.7 L MCV 95.1 MCH 33.2 MCHC 34.9 RDW 13.5 Plt Count 189 MPV 10.5 H Immature Gran % (Auto) 0.4 Neut % (Auto) 56.2 Lymph % (Auto) 23.9 Teller % (Auto) 13.7 H Eos % (Auto) 4.8 H Baso % (Auto) 1.0 Lymph # (Auto) 1.24 Teller # (Auto) 0.7 H Eos # (Auto) 0.3 Baso # (Auto) 0.1 Abs Immat Gran (auto) 0.02 Absolute Neuts (auto) 2.9 Absolute Nucleated RBC 0.0 Nucleated RBC % 0.0 PT 16.5 H INR 1.4 Sodium 141 Potassium 4.2 Chloride 108 H Carbon Dioxide 25 Anion Gap 8 BUN 22 H Creatinine 1.10 Estim Creat Clear Calc 40 Estimated GFR > 60 Glucose 94 Calcium 8.8 ASA Classification/Sedation ASA Classification
--- NOTE | 2020-05-24 10:42 | WPDCARDPROC ---
Cardiac Cath Procedure Note Date of procedure:: 05/24/20 Performing physician:: Scott Berumen MD Indication:: valvular heart disease chronic atrial fibrillation patient being considered for mitral valve intervention Brief clinical history:: this is an 84-year-old patient with a history of chronic persistent atrial fibrillation and left ventricular systolic dysfunction. The patient has aortic and mitral valve regurgitation. Right left heart catheterization was recommended as part of a evaluation for him to be considered a candidate for mitral valve intervention. Procedure Procedure performed:: Right left heart catheterization Sedation/Medication given:: fentanyl 50 mg Versed 2 mg sedation provided by Sudha Mann RN, trained observer Access site:: right femoral artery right femoral vein Estimated blood loss:: 20-30 cc Procedure note:: patient was brought to the cardiac catheterization lab in the postabsorptive state. The right femoral triangle was prepped and draped in the usual fashion. Anesthesia was provided with 1% lidocaine infiltrated locally. Using the modified Seldinger technique a 5 Armenian sheath was placed into the femoral artery and a 7 Armenian sheath into the femoral vein. I then used a balloon tipped [place]-Larry catheter to perform right-sided hemodynamics and thermodilution cardiac outputs. An AV O2 difference was then sample. The [place]-Larry catheter was removed. There was a concerning amount of bruising about the site of the arterial puncture sheath during the right heart catheterization I therefore elected to upsized this to a long 22 cm 6 Armenian sheath over a long guidewire. The 6 Armenian sheath resulted in good hemostasis. Following this I used a 5 Armenian angled pigtail catheter to perform left ventriculography and assess left-sided hemodynamics and pullback pressures across the aortic valve. Following this standard 5 Armenian FL4 JR4 catheters were used to engage inject the left and right coronaries in multiple projections. The case was then terminated he was taken to the holding area for manual sheath removal there were no signs of any procedural complications he tolerated the procedure well. Findings:: Hemodynamics: Right atrial pressure 7. Right ventricle 45 over 3 end-diastolic 8. Pulmonary artery pressure 45/16. Pulmonary capillary wedge pressure 17 V-wave up to 28. Central aortic pressure is 156/86 left ventricle 156/8 end-diastolic 18. There is no pullback gradient across the aortic valve. The thermodilution cardiac output measured 2.87 liters/minute giving an index of 1.56. Hussein cardiac output is 4.51 giving index of 2.46. Left ventricle: The LV is moderately dilated there is global systolic hypocontractility identified the ejection fraction is visually estimated to be 35-40%. There is 3 to 4+ mitral regurgitation angiographically. The left main coronary artery is nicely patent the left anterior descending is a moderate caliber vessel extending down to the apex the LAD and its branches are smooth and angiographically normal. The circumflex is a moderate caliber artery giving rise to the marginal branches the circumflex system and its branches are smooth and angiographically normal. The right coronary artery is large in caliber dominant to the posterior circulation the right coronary artery is also smooth and angiographically normal in appearance Conclusion:: 1. right coronary dominant circulation with no evidence of coronary artery disease 2. left ventricular enlargement with global hypocontractility ejection fraction as detailed above in the vicinity of 35-40% 3. angiographically evidence of moderate to severe MR
--- NOTE | 2020-05-24 19:08 | SUR.PHASEII ---
1900-pt given D/C orders and instructions. Questions answered and verbalized understanding. AOx4. PIV removed intact. Groin soft and non-tender, no evidence of bleeding or hematoma noted. Weak to moderate right pedal pulse noted. Taken via wheelchair to waiting vehicle. No distress noted or verbalized at time of departure.
== END 2020-05-24 19:00 | disposition home or self-care (01) ==
PROVIDERS: PCP Internal Medicine; Visit Provider Specialist
PROC: 4A023N8 Measurement of Cardiac Sampling and Pressure, Bilateral, Percutaneous Approach (ICD-10-PCS; CPT 93453; principal; 2020-05-24 08:30)
DX: Z01.810 Encounter for preprocedural cardiovascular examination (principal); I34.0 Nonrheumatic mitral (valve) insufficiency; I35.1 Nonrheumatic aortic (valve) insufficiency; I48.20 Chronic atrial fibrillation, unspecified; R06.09 Other forms of dyspnea; I50.32 Chronic diastolic (congestive) heart failure; G47.33 Obstructive sleep apnea (adult) (pediatric); Z95.0 Presence of cardiac pacemaker; Z79.01 Long term (current) use of anticoagulants
CPT/HCPCS: 36415; 80048; 85025; 85610; 93460; C1887; C1894; J1644; J2250; J3010; J7030; J7040

== ENCOUNTER 2020-07-01 12:55 | Outpatient (RCR) | payer MEDICARE, SELFPAY ==
[2020-04-16 12:18] LABS: INR 4.4; Prothrombin Time 41.4 Seconds (11.1-14.7)
[2020-05-01 09:10] LABS: Prothrombin Time 47.5 Seconds (11.1-14.7)
[2020-05-01 09:20] LABS: INR 5.2
[2020-05-03 11:10] LABS: Prothrombin Time 30.4 Seconds (11.1-14.7)
[2020-05-10 10:23] LABS: INR 2.3; Prothrombin Time 24.4 Seconds (11.1-14.7)
[2020-05-17 11:02] LABS: INR 1.8; Prothrombin Time 20.1 Seconds (11.1-14.7)
[2020-06-24 13:07] LABS: INR 4.1; Prothrombin Time 40.4 Seconds (11.1-14.7)
[2020-07-01 13:41] LABS: INR 3.8; Prothrombin Time 38.2 Seconds (11.1-14.7)
== END 2020-07-15 23:59 | disposition home or self-care (01) ==
LOC: ANHLAB 12:55
PROVIDERS: PCP Internal Medicine; Visit Provider Internal Medicine Cardiovascular Disease
DX: Z51.81 Encounter for therapeutic drug level monitoring (principal); I48.92 Unspecified atrial flutter; Z79.01 Long term (current) use of anticoagulants
CPT/HCPCS: 36415; 85610

== ENCOUNTER 2020-07-10 09:58 | Outpatient (NON) | payer MEDICARE, SELFPAY ==
[2020-07-10 22:32] LABS: SARS-CoV-2 RNA PCR Negative
== END 2020-07-10 09:59 ==
LOC: ANHCOVIDDT 10:05
PROVIDERS: Visit Provider Internal Medicine Cardiovascular Disease
DX: Z01.812 Encounter for preprocedural laboratory examination (principal); Z11.59 Encounter for screening for other viral diseases
CPT/HCPCS: 87635; C9803; U0003

== ENCOUNTER 2020-07-13 06:46 | Outpatient (NON) | payer MEDICARE, SELFPAY ==
[2020-07-14 01:24] LABS: SARS-CoV-2 RNA PCR Negative
== END 2020-07-13 06:47 ==
LOC: ANHCOVIDDT 06:46
PROVIDERS: Visit Provider Internal Medicine Cardiovascular Disease
DX: Z01.818 Encounter for other preprocedural examination (principal); Z20.828 Contact with and (suspected) exposure to other viral communicable diseases
CPT/HCPCS: 87635; C9803; U0003

== ENCOUNTER 2020-08-07 10:52 | Outpatient (RCR) | payer MEDICARE, SELFPAY ==
[2020-07-23 15:36] LABS: INR 2.3
[2020-08-07 11:58] LABS: INR 1.6; Prothrombin Time 19.8 Seconds (11.1-14.7)
== END 2020-10-21 23:59 | disposition home or self-care (01) ==
LOC: ANHLAB 10:52
PROVIDERS: PCP Internal Medicine; Visit Provider Internal Medicine Cardiovascular Disease
DX: Z51.81 Encounter for therapeutic drug level monitoring (principal); I48.19 Other persistent atrial fibrillation; Z79.01 Long term (current) use of anticoagulants
CPT/HCPCS: 36415; 85610

== ENCOUNTER 2020-10-23 10:30 | Outpatient (RCR) | payer MEDICARE, SELFPAY ==
[2020-08-01 14:53] VITALS: BP 138/84; PULSE 60; RESP 16; TEMP 36.5; O2SAT 99
--- NOTE | 2020-08-21 13:47 | PCCPR ---
pt cxl due to weather
--- NOTE | 2020-09-11 08:14 | PCCPR ---
absent-weather/too cold.
== END 2020-10-23 16:00 | disposition home or self-care (01) ==
LOC: ANHCPREHAB 10:30
PROVIDERS: PCP Internal Medicine; Visit Provider Internal Medicine Cardiovascular Disease
DX: Z95.2 Presence of prosthetic heart valve (principal)
CPT/HCPCS: 93798

== ENCOUNTER 2021-03-04 12:04 | Outpatient (CLI) | payer MEDICARE, SELFPAY ==
[2021-03-04 12:49] LABS: Hematocrit 38.1 % (42.0-52.0); Hemoglobin 12.9 g/dL (14.0-18.0); Mean Corpuscular HGB Conc 33.9 g/dl (32-36); Mean Corpuscular Hemoglobin 33.5 pg (26-34); Mean Platelet Volume 10.5 fl (7.4-10.4); Platelet Count Result 179 k/mm3 (150-375); Red Blood Count 3.85 M/mm3 (4.6-6.20); Red Cell Distribution Width 13.7 % (11.5-14.5); White Blood Count 4.9 K/mm3 (4.5-10.0)
[2021-03-04 17:07] LABS: Alanine Aminotransferase 29 U/L (4-50); Alkaline Phosphatase 97 U/L (38-126); Anion Gap 5 mmol/L (8-16); Aspartate Amino Transferase 50 U/L (17-59); Bilirubin,Total 0.6 mg/dL (0.2-1.3); Blood Urea Nitrogen 22 mg/dL (9-20); Calcium 9.3 mg/dL (8.4-10.2); Carbon Dioxide 27 mmol/L (22-30); Chloride 110 mmol/L (98-107); Estimated Glomerular Filt Rate 48; Glucose 78 mg/dL (65-110); Potassium 4.4 mmol/L (3.4-5.0); Sodium 142 mmol/L (137-145)
== END 2021-03-04 12:05 | disposition home or self-care (01) ==
PROVIDERS: PCP Internal Medicine; Visit Provider Internal Medicine Cardiovascular Disease
DX: Z51.81 Encounter for therapeutic drug level monitoring (principal); Z79.899 Other long term (current) drug therapy; Z79.01 Long term (current) use of anticoagulants
CPT/HCPCS: 36415; 80053; 84443; 85027

== ENCOUNTER 2021-09-08 14:54 | Outpatient (CLI) | payer MEDICARE, SELFPAY ==
[2021-09-08 15:35] LABS: Hematocrit 39.1 % (42.0-52.0); Hemoglobin 13.4 g/dL (14.0-18.0); Mean Corpuscular HGB Conc 34.3 g/dl (32-36); Mean Corpuscular Volume 99.2 fl (80-100); Mean Platelet Volume 10.3 fl (7.4-10.4); Platelet Count Result 203 k/mm3 (150-375); Red Blood Count 3.94 M/mm3 (4.6-6.20); Red Cell Distribution Width 13.5 % (11.5-14.5); White Blood Count 6.2 K/mm3 (4.5-10.0)
[2021-09-08 15:45] LABS: Alanine Aminotransferase 21 U/L (4-50); Alkaline Phosphatase 88 U/L (38-126); Anion Gap 4 mmol/L (8-16); Aspartate Amino Transferase 37 U/L (17-59); Bilirubin,Total 0.6 mg/dL (0.2-1.3); Blood Urea Nitrogen 22 mg/dL (9-20); Calcium 8.4 mg/dL (8.4-10.2); Carbon Dioxide 31 mmol/L (22-30); Chloride 104 mmol/L (98-107); Estimated Glomerular Filt Rate 57; Glucose 74 mg/dL (65-110); Sodium 139 mmol/L (137-145)
== END 2021-09-08 14:55 | disposition home or self-care (01) ==
LOC: ANHLAB 14:59
PROVIDERS: PCP Internal Medicine; Visit Provider Internal Medicine Cardiovascular Disease
DX: R06.00 Dyspnea, unspecified (principal); Z79.01 Long term (current) use of anticoagulants; Z79.899 Other long term (current) drug therapy
CPT/HCPCS: 36415; 80053; 84443; 85027

== ENCOUNTER 2022-02-11 16:38 | Emergency (ER) | payer MEDICARE, SELFPAY ==
--- NOTE | ~2022-02-11 | XR_ITS ---
EXAMINATION: XR chest 2V DATE: 02/11/2022 17:13 INDICATION: Cough. TECHNIQUE: Frontal and lateral views of the chest were obtained. COMPARISON: Chest 2 views 02/09/2020 FINDINGS: A calcified right lung nodule and calcified right hilar lymph nodes are consistent with old granulomatous disease. No pleural effusion or pneumothorax. The heart size is normal. There is a lef t chest pacer with lead in right ventricle. An implant overlies the heart. IMPRESSION: 1. No acute cardiopulmonary disease. Reviewed, dictated and finalized at location A.
[2022-02-11 16:39] VITALS: BP 140/80; PULSE 70; RESP 16; TEMP 36.8; O2SAT 100
--- NOTE | 2022-02-11 16:42 | ED.RECABL ---
HPI - Recheck/Abnormal Lab/Rx General Chief Complaint: Recheck/Abnormal Lab/Rx Stated Complaint: ELEVATED INR Time Seen by Provider: 02/11/22 16:42 History of Present Illness HPI narrative: Patient is an 86-year-old male with a history of coronary artery disease, anticoagulated on warfarin, pacemaker, arthritis presenting to the emergency department for evaluation of elevated INR. Patient was called by his battery starter today for INR greater than 8 on outpatient laboratory testing. He was told to come to emergency department for assessment. At the time of assessment, patient denies any current pain. He denies any bleeding gums, epistaxis, easy bruising, or blood present in his stool. He denies any specific pain. Patient denies any anticoagulation dose changes. He does report that he recently was placed on steroids for an upper respiratory infection that he has been symptomatic from since January 27. Patient has had negative COVID testing for the symptoms. He reports chronic wheezing and mildly productive cough without hemoptysis. Patient denies any chest pain or shortness of breath. Patient denies any medication additions. Related Data Home Medications Medication Instructions Recorded Confirmed ascorbic acid (vitamin C) 500 mg 500 mg PO DAILY 02/07/20 05/23/20 tablet (Vitamin C With Ashely Hips) furosemide 20 mg tablet (Lasix) 20 mg PO DAILY 02/07/20 05/23/20 multivitamin 1 tablet PO DAILY 02/07/20 05/23/20 omega-3s 300 [id number]-other 1 cap PO DAILY 02/07/20 05/23/20 [id number] oil 1,000 mg capsule (Vader-3 Fish Oil) vitamin D3 2,500 unit-folic acid 1 1 tablet PO DAILY 02/07/20 05/23/20 mg tablet warfarin 6 mg tablet 3 mg PO DAILY 02/07/20 05/23/20 amiodarone 200 mg tablet 200 mg PO BID 05/23/20 05/23/20 metoprolol succinate 50 mg 25 mg PO DAILY 05/23/20 05/23/20 tablet,extended release 24 hr quinapril 20 mg tablet 20 mg PO BID 08/14/20 08/14/20 Allergies Allergy/AdvReac Type Severity Reaction Status Date / Time erythromycin base Allergy Mild PT NOT Verified 05/23/20 15:31 SURE--HAD PROBLEM 30 YEARS AGO Review of Systems Review of Systems: CONSTITUTIONAL: Denies fever, chills, or sweats. EYES: Denies visual changes, redness, or discharge. ENT: Denies rhinorrhea, congestion, sore throat, or otalgia. CARDIOVASCULAR: Denies chest pain, palpitations, or edema. RESPIRATORY: Patient reports cough, wheezing GASTROINTESTINAL: Denies abdominal pain, nausea, vomiting, or diarrhea. GENITOURINARY: Denies dysuria or hematuria. SKIN: Denies rash or itching. MUSCULOSKELETAL: Denies back pain, joint pain, or myalgia. NEUROLOGIC: Denies headache, numbness, or weakness. [facility] Past Medical History Medical History Aortic insufficiency Atrial fibrillation Diastolic CHF, 2019 Mitral regurgitation LAI treated with BiPAP Pacemaker [employer] pacemaker, January 2020 PVCs (premature ventricular contractions) Surgical History Surgical History H/O detached retina repair H/O hernia repair S/P lens implant Family History Family History Father Cerebrovascular accident Mother Polycystic kidney disease Social History Social History Smoking status: Never smoker Alcohol intake: never Substance use: never Substance use type: does not use Gender identity (if verbalized by the patient): Male Sexual Orientation (if Verbalized by the Patient): Straight or Heterosexual Spiritual care concerns: No Exam Narrative: GENERAL: Awake, alert, conversant HEAD: Normocephalic, atraumatic. EYES: PERRLA and EOMI. ENT: Nares clear, no rhinorrhea or epistaxis. Mucous membranes moist. NECK: Supple. CHEST: No respiratory distress, breathing even and non labored.
--- NOTE | 2022-02-11 16:53 | PC.NURSE ---
patient reports recently being prescribed steroid for cold . last dose was today. checked INR today at home and it indicated >8.0. no recent dosage changes. patient denies any abnormal bleeding. last BM was this morning and denies any blood in stools or urine
[2022-02-11 16:57] LABS: Basophils Percent Auto 0.1 % (0.2-1.2); Hematocrit 41.7 % (42.0-52.0); Hemoglobin 13.6 g/dL (14.0-18.0); Immature Granulocyte Percent A 2.2 % (0-0.5); Lymphocytes Absolute Auto 0.52 K/mm3 (0.9-3.2); Lymphocytes Percent Auto 3.9 % (18.3-44.2); Mean Corpuscular HGB Conc 32.6 g/dl (32-36); Mean Corpuscular Hemoglobin 32.8 pg (26-34); Mean Corpuscular Volume 100.5 fl (80-100); Mean Platelet Volume 9.5 fl (7.4-10.4); Monocytes Absolute Auto 0.4 K/mm3 (0.1-0.6); Monocytes Percent Auto 3.1 % (2.6-8.5); Neutrophils Absolute Auto 12.1 K/mm3 (1.3-6.7); Neutrophils Percent Auto 90.7 % (45.5-73.1); Platelet Count Result 353 k/mm3 (150-375); Red Blood Count 4.15 M/mm3 (4.6-6.20); Red Cell Distribution Width 14.1 % (11.5-14.5); White Blood Count 13.4 K/mm3 (4.5-10.0)
[2022-02-11 17:06] LABS: Alanine Aminotransferase 39 U/L (6-50); Albumin Level 4.2 g/dL (3.5-5.1); Alkaline Phosphatase 99 U/L (38-126); Anion Gap 6 mmol/L (8-16); Aspartate Amino Transferase 39 U/L (17-59); Bilirubin,Total 0.8 mg/dL (0.2-1.3); Blood Urea Nitrogen 24 mg/dL (9-20); Calcium 8.8 mg/dL (8.4-10.2); Carbon Dioxide 30 mmol/L (22-30); Chloride 101 mmol/L (98-107); Estimated CRCL calculation 40 ml/min; Estimated Glomerular Filt Rate > 60; Glucose 127 mg/dL (65-110); Potassium 4.7 mmol/L (3.4-5.0); Sodium 137 mmol/L (137-145)
[2022-02-11 17:25] LABS: Partial Thromboplastin Time 56.6 SECONDS (22.3-36.8); Prothrombin Time 54.4 Seconds (11.1-14.7)
[2022-02-11 17:29] LABS: INR 6.4
[2022-02-11] MEDS: PHYTONADIONE 2.5 MG TAB PO (18:27)
== END 2022-02-11 18:30 | disposition home or self-care (01) ==
PROVIDERS: Emergency Provider Emergency Medicine; PCP Internal Medicine
DX: I48.91 Unspecified atrial fibrillation (principal); T45.515A Adverse effect of anticoagulants, initial encounter; Z79.01 Long term (current) use of anticoagulants; G47.30 Sleep apnea, unspecified; Z95.0 Presence of cardiac pacemaker; I50.9 Heart failure, unspecified
CPT/HCPCS: 36415; 71046; 80053; 85025; 85610; 85730; 99283; A9270

== ENCOUNTER 2022-03-17 12:34 | Outpatient (CLI) | payer MEDICARE, SELFPAY ==
[2022-03-17 13:10] LABS: Hematocrit 38.7 % (42.0-52.0); Hemoglobin 12.5 g/dL (14.0-18.0); Mean Corpuscular HGB Conc 32.3 g/dl (32-36); Mean Corpuscular Hemoglobin 32.5 pg (26-34); Mean Corpuscular Volume 100.5 fl (80-100); Mean Platelet Volume 10.4 fl (7.4-10.4); Platelet Count Result 207 k/mm3 (150-375); Red Blood Count 3.85 M/mm3 (4.6-6.20); Red Cell Distribution Width 14.1 % (11.5-14.5); White Blood Count 6.5 K/mm3 (4.5-10.0)
[2022-03-17 13:22] LABS: Alanine Aminotransferase 19 U/L (6-50); Albumin Level 3.8 g/dL (3.5-5.1); Alkaline Phosphatase 91 U/L (38-126); Anion Gap 6 mmol/L (8-16); Aspartate Amino Transferase 39 U/L (17-59); Bilirubin,Total 0.7 mg/dL (0.2-1.3); Blood Urea Nitrogen 23 mg/dL (9-20); Calcium 8.5 mg/dL (8.4-10.2); Carbon Dioxide 30 mmol/L (22-30); Chloride 104 mmol/L (98-107); Estimated Glomerular Filt Rate 57; Glucose 82 mg/dL (65-110); Potassium 4.4 mmol/L (3.4-5.0); Sodium 140 mmol/L (137-145)
== END 2022-03-17 12:35 | disposition home or self-care (01) ==
PROVIDERS: PCP Internal Medicine; Visit Provider Internal Medicine Cardiovascular Disease
DX: Z51.81 Encounter for therapeutic drug level monitoring (principal); Z79.899 Other long term (current) drug therapy
CPT/HCPCS: 36415; 80053; 84443; 85027

== ENCOUNTER 2022-07-08 14:24 | Outpatient (CLI) | payer MEDICARE, SELFPAY | END 2022-07-08 14:25 | disposition home or self-care (01) | LOC: ANHAUDIO 14:25 | PROVIDERS: PCP Internal Medicine; Visit Provider Otolaryngology | DX: H90.3 Sensorineural hearing loss, bilateral (principal) | CPT/HCPCS: 92557; 92567 ==

== ENCOUNTER 2023-04-02 13:50 | Outpatient (CLI) | payer MEDICARE, SELFPAY ==
--- NOTE | ~2023-04-02 | XR_ITS ---
XR chest 2V DATE: 04/02/2023 14:20 INDICATION: Long-term amiodarone use TECHNIQUE: PA and lateral views COMPARISON: 02/11/2022 AP and lateral chest FINDINGS: Borderline heart size. Left transvenous pacemaker device with right ventricular lead. There is aortic tortuosity. Mild infiltrate, atelectasis and/or pulmonary interstitial fibrotic change at the lung bases. The shayne gs otherwise appear clear. No pleural effusion or pulmonary congestion or pneumothorax. IMPRESSION: Mild bibasilar pulmonary infiltrate, atelectasis and/or interstitial fibrotic change Reviewed, dictated and finalized at location A. IMPRESSION: Mild bibasilar pulmonary infiltrate, atelectasis and/or interstitia l fibrotic change
[2023-04-02 15:13] LABS: Alanine Aminotransferase 21 U/L (6-50); Albumin Level 3.9 g/dL (3.5-5.1); Alkaline Phosphatase 84 U/L (38-126); Anion Gap 4 mmol/L (8-16); Aspartate Amino Transferase 39 U/L (17-59); Bilirubin,Total 0.8 mg/dL (0.2-1.3); Blood Urea Nitrogen 18 mg/dL (9-20); Calcium 8.6 mg/dL (8.4-10.2); Carbon Dioxide 32 mmol/L (22-30); Chloride 104 mmol/L (98-107); Estimated Glomerular Filt Rate > 60; Glucose 84 mg/dL (65-110); Potassium 4.4 mmol/L (3.4-5.0); Sodium 140 mmol/L (137-145)
[2023-04-02 17:59] LABS: Total Triiodothyronine (T3) 0.98 NG/ML (0.97-1.69)
== END 2023-04-02 13:51 | disposition home or self-care (01) ==
PROVIDERS: PCP Internal Medicine; Visit Provider Nurse Practitioner Adult Health
DX: Z79.899 Other long term (current) drug therapy (principal); R91.8 Other nonspecific abnormal finding of lung field
CPT/HCPCS: 36415; 71046; 80053; 84439; 84443; 84480

== ENCOUNTER 2023-04-13 10:09 | Outpatient (CLI) | payer MEDICARE, SELFPAY ==
--- NOTE | ~2023-04-13 | CT_ITS ---
EXAMINATION: CT diagnostic chest wo con DATE: 04/13/2023 10:29 INDICATION: Abnormal chest x-ray, long-term amiodarone use TECHNIQUE: Computed tomography (CT) of the chest was performed without intravenous contrast. The dose -length product (DLP) was 216.87 mGy-cm. Automated exposure control and iterative reconstruction tech [employer] were employed. COMPARISON: 04/02/2023 FINDINGS: There is mild dependent atelectasis of the lung bases. Cardiomegaly is noted. There is smoo th interlobular septal thickening in the lower lobes. No pleural effusion or pneumothorax. Calcified pulmonary nodules and calcified right hilar lymph nodes are consistent with old granulomatous disease . A single lead pacemaker of the left chest wall ends with its lead in the right ventricle. Cysts of the liver measure up to 10 mm in the right hepatic lobe. Mild diffuse hyperattenuation of the liver i s consistent with long-term amiodarone use. There is a 3.5 cm cyst of the right kidney. There is hilario re thoracic spondylosis. IMPRESSION: 1. Cardiomegaly with mild congestive changes. Reviewed, dictated and finalized at location L.
== END 2023-04-13 10:10 | disposition home or self-care (01) ==
PROVIDERS: PCP Internal Medicine; Visit Provider Nurse Practitioner Adult Health
DX: Z51.81 Encounter for therapeutic drug level monitoring (principal); Z79.899 Other long term (current) drug therapy
CPT/HCPCS: 71250

== ENCOUNTER 2023-12-24 10:24 | Outpatient (CLI) | payer MEDICARE, SELFPAY ==
--- NOTE | ~2023-12-24 | US_ITS ---
EXAMINATION: US soft tissue groin RT DATE: 12/24/2023 11:18 INDICATION: Right groin mass. TECHNIQUE: Multiple grayscale and Doppler ultrasound images of the right inguinal region were obtaine d. COMPARISON: None FINDINGS: In the right inguinal region, there is a 4.4 x 5.4 x 4.6 cm mass of mixed echogenicity supe rficial to the arteries, consistent with a hematoma. No pseudoaneurysm. There is thrombus in right gr eater saphenous vein. IMPRESSION: 1. 5.4 cm hematoma superficial to the right groin arteries. No pseudoaneurysm. 2. Superficial vein thrombosis involving right greater saphenous vein. Reviewed, dictated and finalized at location A.
== END 2023-12-24 10:25 | disposition home or self-care (01) ==
PROVIDERS: PCP Internal Medicine; Visit Provider Internal Medicine
DX: I82.811 Embolism and thrombosis of superficial veins of right lower extremity (principal)
CPT/HCPCS: 76882

== ENCOUNTER 2024-04-26 11:15 | Outpatient (RCR) | payer MEDICARE, SELFPAY | END 2024-04-26 13:31 | disposition home or self-care (01) | LOC: ANHCPREHAB 11:15 | PROVIDERS: PCP Internal Medicine; Visit Provider Internal Medicine Cardiovascular Disease | DX: Z95.2 Presence of prosthetic heart valve (principal) | CPT/HCPCS: 93798 ==